=== PATIENT | male | born 1945 | race Caucasian/White ===

== ENCOUNTER 2018-06-27 05:53 | Inpatient (IN) ==
--- NOTE | 2018-06-27 06:08 | ED ---
HPI General Chief Complaint: Chest Pain Stated Complaint: Chest pain,lft arm pain x 40 mins Time Seen by Provider: 06/27/18 06:01 Source: patient Mode of arrival: ambulatory Limitations: no limitations History of Present Illness HPI narrative: 73-year-old male presents to the emergency department by private transportation for evaluation of retrosternal chest pain radiating to the left shoulder and right neck. Symptoms have been present since awakening at 4 AM. Patient is taken 325 of aspirin prior to arrival. Patient does not take nitroglycerin. Patient has had previous myocardial infarction in the 90s at which time he underwent cardiac catheterization and had stent placement. Patient reports discomfort is 1-1-1/2 over 10 in intensity at this time previously was 4-5/10 in intensity. No shortness of breath sweats nausea or vomiting. No abdominal pain. No history of gastritis peptic ulcer disease cholelithiasis biliary colic or pancreatitis. No recent long distance travel. No personal history or family history of clotting disorder PE or DVT. No pain or swelling of the legs. No orthopnea. No recent febrile illness. Patient takes no blood thinning agents and takes no erectile dysfunction medications. MD complaint: Reports chest pain Onset (ago): hour(s) (2) Time: 04:00 Duration: constant Onset: awoke with symptoms Pain location: Reports substernal Severity: mild Severity scale (1-10): 1 Quality: Reports tightness and aching Pain radiation: Reports LUE and neck (right) Relieving factors: nothing Exacerbating factors: nothing Context: Denies recent illness, recent surgery, recent immobilization, recent travel, trauma/injury, new medications and history of DVT/PE Associated symptoms: Denies nausea, vomiting, diaphoresis, dyspnea, sense of impending doom, syncope, palpitations, fever, cough and leg swelling Treatments prior to arrival chest pain: Reports aspirin (325 mg po) Related Data Home Medications Medication Instructions Recorded Confirmed allopurinol 300 mg PO DAILY 06/27/18 06/27/18 aspirin 325 mg PO DAILY 06/27/18 06/27/18 atorvastatin 10 mg PO DAILY 06/27/18 06/27/18 losartan 25 mg PO DAILY 06/27/18 06/27/18 Allergies Allergy/AdvReac Type Severity Reaction Status Date / Time Penicillins Allergy Hives Verified 06/27/18 06:00 Sulfa (Sulfonamide Allergy Hives Verified 06/27/18 06:00 Antibiotics) Review of Systems ROS: all other systems reviewed are negative PMFSH History History Provided By: Patient (cad, mi, cath w/ stent) Medical History Medical History History of hypertension (Acute) Hx of gout (Acute) Hx of myocardial infarction (Acute) Surgical History Surgical History Hx of coronary angioplasty (Acute) Family History Family History Other Osteoarthritis Social History Social History Substance History: No History of Abuse Second Hand Smoke Exposure: No Smoking Status: Former smoker Tobacco Type: Cigarettes How Often Do You Have a Drink Containing Alcohol: 4 or more times a week Recent Travel in [facility] within the Last 8 Weeks: No Recent Out of Country Travel within the Last 8 Weeks: No Exam Narrative Exam Narrative: GENERAL: Well-nourished, well-developed patient. SKIN: Focused skin assessment warm/dry. HEAD: Normocephalic. EYES: No scleral icterus. No injection or drainage. NECK: Supple, trachea midline. No JVD or lymphadenopathy. CARDIOVASCULAR: Regular rate and rhythm without murmurs, gallops, or rubs. RESPIRATORY: Breath sounds equal bilaterally. No accessory muscle use. GASTROINTESTINAL: Abdomen soft, non-tender, nondistended. MUSCULOSKELETAL: No cyanosis, or edema. BACK: Nontender without obvious deformity. No CVA tenderness. Course Initial Documented Vital Signs Pulse Rate 72 06/27/18 06:00 Pulse Oximetry 98 06/27/18 06:00 Last Documented Vital Signs Temperature 97.3 F L 06/28/18 12:00 Pulse Rate 64 06/28/18 12:00 Respiratory Rate 18 06/28/18 12:00 Blood Pressure 162/84 H 06/28/18 12:00 Pulse Oximetry 97 06/28/18 12:00 Critical Care Time Critical Care Time: Yes Total Critical Care Time: 30 Attestation: Aggregate critical care time was 30 minutes. Time to perform other separately billable procedures was not included in the critical care time. My time did not include minutes spent treating any other patients simultaneously or on activities that did not directly contribute to the patient's treatment. The services I provided to this patient were to treat and/or prevent clinically significant deterioration that could result in: Myocardial infarction cardiogenic shock I provided critical care services requiring my management, as noted below: Chart data review, documentation time, medication orders and management, vital sign assessments/reviewing monitor data, ordering and reviewing lab tests, ordering and interpreting/reviewing x-rays and diagnostic studies, care of the patient and discussion of the patient with the admitting physicians. Medical Decision Making MDM Narrative Medical decision making narrative: 33-year-old male with pain previous cardiac disease and PR; patient took aspirin prior to arrival to the emergency department. Patient placed on manager cardiac cath with continuous pulse oximetry IV access obtained specimens collected and sent for resulting patient administered sublingual nitroglycerin aspirin had already been received. EKG ordered. Patient pain-free after 1 sublingual nitroglycerin EKG sinus rhythm no acute ST elevation injury pattern old QS inferiorly V3 and aVF no ectopy rate 69 SD interval 182 ms QRS duration 122 ms QT 416/QTc 435 ms Chest x-ray no acute abnormality Lab values within normal range except for troponin I elevation 0.19 At 7:06 AM patient remains asymptomatic is informed of lab results and plan for admission and is agreeable Nitropaste 1 inch applied to the chest wall and heparin bolus with infusion ordered call placed to medicine service for admission. It's 7:20 care signed over to Dr Nguyen to admit to [facility] service for ACS r/o nstemi call placed to [facility] service call back pending Medical Screen Exam Complete: Yes Emergency Medical Condition: Yes Differential Diagnosis Differential Diagnosis: Chest pain, atypical chest pain, ACS, PR, aortic dissection, aortic aneurysm, PE, biliary colic, gastritis, peptic ulcer disease Medical Records Medical records reviewed: Yes I reviewed the patient's medical records. no prior Lab Data Result diagrams: 06/28/18 05:20 06/28/18 05:20 Lab Results 06/27/18 06/27/18 06/27/18 Range/Units 06:00 06:00 06:00 CBC w Diff Auto diff final WBC 6.8 (4.0-11.0) th/mm3 RBC 5.24 (4.50-5.90) mil/mm3 Hgb 16.3 (13.0-17.0) gm/dL Hct 49.6 (39.0-51.0) % MCV 94.5 (80.0-100.0) fL MCH 31.1 (27.0-34.0) pg MCHC 32.9 (32.0-36.0) % RDW 12.7 (11.6-17.2) % Plt Count 185 (150-450) th/mm3 MPV 8.4 (7.0-11.0) fL Neut % (Auto) 50.8 (16.0-70.0) % Lymph % (Auto) 33.0 (9.0-44.0) % Bradley % (Auto) 11.5 H (0.0-8.0) % Eos % (Auto) 4.0 (0.0-4.0) % Baso % (Auto) 0.7 (0.0-2.0) % Neut # (Auto) 3.5 (1.8-7.7) th/mm3 Lymph # (Auto) 2.2 (1.0-4.8) th/mm3 Bradley # (Auto) 0.8 (0.0-0.9) th/mm3 Eos # (Auto) 0.3 (0.0-0.4) th/mm3 Baso # (Auto) 0.0 (0.0-0.2) th/mm3 WBC Differential . Differential Comment . PT 10.3 (9.8-11.6) sec INR 1.0 Ratio APTT 27.6 (23.4-31.7) sec Sodium 133 L (136-145) meq/L Potassium 3.6 (3.5-5.1) meq/L Chloride 101 (98-107) meq/L Carbon Dioxide 25.2 (21.0-32.0) meq/L Anion Gap 7 (5-15) meq/L BUN 27 H (7-18) mg/dL Creatinine 1.30 (0.60-1.30) mg/dL Estimated GFR 54 L (>89) mL/min Random Glucose 117 H (74-106) mg/dL Calcium 9.2 (8.5-10.1) mg/dL Magnesium 1.7 (1.5-2.5) mg/dL Total Bilirubin 0.9 (0.2-1.0) mg/dL AST 26 (15-37) U/L ALT 26 (12-78) U/L Alkaline Phosphatase 75 (45-117) U/L Total Creatine Kinase (39-308) U/L Troponin I 0.19 H (0.02-0.05) ng/mL Total Protein 7.0 (6.4-8.2) g/dL Albumin 3.8 (3.4-5.0) g/dL Triglycerides (42-150) mg/dL Cholesterol (120-200) mg/dL LDL Cholesterol, Calc (0-99) mg/dL HDL Cholesterol (40.0-60.0) mg/dL Cholesterol/HDL Ratio Ratio 06/27/18 06/27/18 06/27/18 Range/Units 09:30 12:15 12:15 CBC w Diff WBC (4.0-11.0) th/mm3 RBC (4.50-5.90) mil/mm3 Hgb (13.0-17.0) gm/dL Hct (39.0-51.0) % MCV (80.0-100.0) fL MCH (27.0-34.0) pg MCHC (32.0-36.0) % RDW (11.6-17.2) % Plt Count (150-450) th/mm3 MPV (7.0-11.0) fL Neut % (Auto) (16.0-70.0) % Lymph % (Auto) (9.0-44.0) % Bradley % (Auto) (0.0-8.0) % Eos % (Auto) (0.0-4.0) % Baso % (Auto) (0.0-2.0) % Neut # (Auto) (1.8-7.7) th/mm3 Lymph # (Auto) (1.0-4.8) th/mm3 Bradley # (Auto) (0.0-0.9) th/mm3 Eos # (Auto) (0.0-0.4) th/mm3 Baso # (Auto) (0.0-0.2) th/mm3 WBC Differential Differential Comment PT (9.8-11.6) sec INR Ratio APTT 72.7 H D (23.4-31.7) sec Sodium (136-145) meq/L Potassium (3.5-5.1) meq/L Chloride (98-107) meq/L Carbon Dioxide (21.0-32.0) meq/L Anion Gap (5-15) meq/L BUN (7-18) mg/dL Creatinine (0.60-1.30) mg/dL Estimated GFR (>89) mL/min Random Glucose (74-106) mg/dL Calcium (8.5-10.1) mg/dL Magnesium (1.5-2.5) mg/dL Total Bilirubin (0.2-1.0) mg/dL AST (15-37) U/L ALT (12-78) U/L Alkaline Phosphatase (45-117) U/L Total Creatine Kinase 125 (39-308) U/L Troponin I 0.75 H* 1.67 H* (0.02-0.05) ng/mL Total Protein (6.4-8.2) g/dL Albumin (3.4-5.0) g/dL Triglycerides (42-150) mg/dL Cholesterol (120-200) mg/dL LDL Cholesterol, Calc (0-99) mg/dL HDL Cholesterol (40.0-60.0) mg/dL Cholesterol/HDL Ratio Ratio 06/27/18 06/27/18 06/28/18 Range/Units 22:40 22:40 05:20 CBC w Diff WBC 6.7 (4.0-11.0) th/mm3 RBC 4.36 L (4.50-5.90) mil/mm3 Hgb 14.4 (13.0-17.0) gm/dL Hct 41.0 (39.0-51.0) % MCV 94.0 (80.0-100.0) fL MCH 33.1 (27.0-34.0) pg MCHC 35.2 (32.0-36.0) % RDW 13.1 (11.6-17.2) % Plt Count 169 (150-450) th/mm3 MPV 7.8 (7.0-11.0) fL Neut % (Auto) 67.2 (16.0-70.0) % Lymph % (Auto) 18.8 (9.0-44.0) % Bradley % (Auto) 10.7 H (0.0-8.0) % Eos % (Auto) 2.4 (0.0-4.0) % Baso % (Auto) 0.9 (0.0-2.0) % Neut # (Auto) 4.5 (1.8-7.7) th/mm3 Lymph # (Auto) 1.3 (1.0-4.8) th/mm3 Bradley # (Auto) 0.7 (0.0-0.9) th/mm3 Eos # (Auto) 0.2 (0.0-0.4) th/mm3 Baso # (Auto) 0.1 (0.0-0.2) th/mm3 WBC Differential . Differential Comment Auto diff final PT (9.8-11.6) sec INR Ratio APTT 29.7 D (23.4-31.7) sec Sodium (136-145) meq/L Potassium (3.5-5.1) meq/L Chloride (98-107) meq/L Carbon Dioxide (21.0-32.0) meq/L Anion Gap (5-15) meq/L BUN (7-18) mg/dL Creatinine (0.60-1.30) mg/dL Estimated GFR (>89) mL/min Random Glucose (74-106) mg/dL Calcium (8.5-10.1) mg/dL Magnesium (1.5-2.5) mg/dL Total Bilirubin (0.2-1.0) mg/dL AST (15-37) U/L ALT (12-78) U/L Alkaline Phosphatase (45-117) U/L Total Creatine Kinase 176 (39-308) U/L Troponin I 6.68 H* (0.02-0.05) ng/mL Total Protein (6.4-8.2) g/dL Albumin (3.4-5.0) g/dL Triglycerides (42-150) mg/dL Cholesterol (120-200) mg/dL LDL Cholesterol, Calc (0-99) mg/dL HDL Cholesterol (40.0-60.0) mg/dL Cholesterol/HDL Ratio Ratio 06/28/18 Range/Units 05:20 CBC w Diff WBC (4.0-11.0) th/mm3 RBC (4.50-5.90) mil/mm3 Hgb (13.0-17.0) gm/dL Hct (39.0-51.0) % MCV (80.0-100.0) fL MCH (27.0-34.0) pg MCHC (32.0-36.0) % RDW (11.6-17.2) % Plt Count (150-450) th/mm3 MPV (7.0-11.0) fL Neut % (Auto) (16.0-70.0) % Lymph % (Auto) (9.0-44.0) % Bradley % (Auto) (0.0-8.0) % Eos % (Auto) (0.0-4.0) % Baso % (Auto) (0.0-2.0) % Neut # (Auto) (1.8-7.7) th/mm3 Lymph # (Auto) (1.0-4.8) th/mm3 Bradley # (Auto) (0.0-0.9) th/mm3 Eos # (Auto) (0.0-0.4) th/mm3 Baso # (Auto) (0.0-0.2) th/mm3 WBC Differential Differential Comment PT (9.8-11.6) sec INR Ratio APTT (23.4-31.7) sec Sodium 139 (136-145) meq/L Potassium 3.9 (3.5-5.1) meq/L Chloride 106 (98-107) meq/L Carbon Dioxide 27.5 (21.0-32.0) meq/L Anion Gap 6 (5-15) meq/L BUN 19 H (7-18) mg/dL Creatinine 1.23 (0.60-1.30) mg/dL Estimated GFR 58 L (>89) mL/min Random Glucose 112 H (74-106) mg/dL Calcium 8.0 L D (8.5-10.1) mg/dL Magnesium (1.5-2.5) mg/dL Total Bilirubin 0.9 (0.2-1.0) mg/dL AST 43 H (15-37) U/L ALT 22 (12-78) U/L Alkaline Phosphatase 67 (45-117) U/L Total Creatine Kinase 185 (39-308) U/L Troponin I 8.29 H* (0.02-0.05) ng/mL Total Protein 6.0 L D (6.4-8.2) g/dL Albumin 3.0 L D (3.4-5.0) g/dL Triglycerides 249 H (42-150) mg/dL Cholesterol 141 (120-200) mg/dL LDL Cholesterol, Calc 58 (0-99) mg/dL HDL Cholesterol 33.1 L (40.0-60.0) mg/dL Cholesterol/HDL Ratio 4.25 Ratio Imaging Data Radiologist's impression: Chest X-Ray 06/27/18 06:01 CONCLUSION: No acute disease ECG Data EKG Prior to Arrival: No Attestation: I personally reviewed and interpreted this ECG as follows: (EKG: Normal sinus rhythm rate [address] elevation injury pattern or ectopy noted prior QS pattern inferiorly consistent with history of previous PR; no comparison EKG available) Discharge Plan Discharge Disposition Patient Disposition: ED Admit(ED Internal Use Only) Discharge Condition Condition: Stable Discharge Order Discharge Orders: ED Use Only Admit Order (Routine); Ordered 06/27/18 Ordered By: Yaron Nguyen Discharge Details Diagnosis: ACS (acute coronary syndrome) Physicians Team ED Provider: Soo Valdovinos Primary Care Provider: NON STAFF,PROVIDER Attending Provider: Ashley Whyte Other Providers: Vikas Rodgers ED Status: Left Department Discharge Information Discharge Date/Time: 06/27/18 08:26
[2018-06-27] MEDS ORDERED: Sod Chloride 0.9% Inj 1,000 ML IV.CONT SCH (06:15)
[2018-06-27 06:23] LABS: Baso % (Auto) 0.7 % (0.0-2.0); Eos # (Auto) 0.3 th/mm3 (0.0-0.4); Hematocrit 49.6 % (39.0-51.0); Hemoglobin 16.3 gm/dL (13.0-17.0); Lymph # (Auto) 2.2 th/mm3 (1.0-4.8); Mean Corpuscular HGB Conc 32.9 % (32.0-36.0); Mean Corpuscular Hemoglobin 31.1 pg (27.0-34.0); Mean Corpuscular Volume 94.5 fL (80.0-100.0); Mean Platelet Volume 8.4 fL (7.0-11.0); Mono # (Auto) 0.8 th/mm3 (0.0-0.9); Mono % (Auto) 11.5 % (0.0-8.0); Neut # (Auto) 3.5 th/mm3 (1.8-7.7); Neut % (Auto) 50.8 % (16.0-70.0); Platelet Count 185 th/mm3 (150-450); Red Blood Count 5.24 mil/mm3 (4.50-5.90); Red Cell Distribution Width 12.7 % (11.6-17.2); White Blood Count 6.8 th/mm3 (4.0-11.0)
[2018-06-27 06:30] LABS: Chloride 101 meq/L (98-107); Potassium 3.6 meq/L (3.5-5.1); Sodium 133 meq/L (136-145)
--- NOTE | 2018-06-27 06:31 | XR ---
EXAM DATE: 06/27/2018 6:25 AM EST AGE/SEX: 73 years / Male INDICATIONS: Chest pain. CLINICAL DATA: This is the patient's initial encounter. Patient reports that signs and symptoms have been present for 1 day and indicates a pain score of 2/10. MEDICAL/SURGICAL HISTORY: Hypertension. Angioplasty. COMPARISON: No prior exams available for comparison. FINDINGS: A single AP view of the chest demonstrates the lungs to be symmetrically aerated without evidence of mass, infiltrate or effusion. The cardiomediastinal contours are unremarkable. Osseous structures a re intact. CONCLUSION: No acute disease Electronically signed by: Haim Johnson MD Board Certified Radiologist 06/27/2018 6:30 AM EST
[2018-06-27 06:33] LABS: Calcium 9.2 mg/dL (8.5-10.1)
[2018-06-27 06:34] LABS: Albumin 3.8 g/dL (3.4-5.0); Anion Gap 7 meq/L (5-15); Blood Urea Nitrogen 27 mg/dL (7-18); Carbon Dioxide 25.2 meq/L (21.0-32.0); Glucose,Random 117 mg/dL (74-106); Magnesium 1.7 mg/dL (1.5-2.5)
[2018-06-27 06:37] LABS: Alanine Aminotransferase 26 U/L (12-78); Aspartate Aminotransferase 26 U/L (15-37); Glomerular Filtration Rate 54 mL/min (>89)
[2018-06-27 06:40] LABS: Alkaline Phosphatase 75 U/L (45-117)
[2018-06-27 06:42] LABS: Troponin I 0.19 ng/mL (0.02-0.05)
[2018-06-27] MEDS ORDERED: Heparin Drip 25,000 UNIT/250 ML BAG IV.CONT PRN (07:03)
[2018-06-27] MEDS ORDERED: Heparin 10,000 UNITS/10 ML Vial (for IV use) IV.PUSH STA (07:03)
[2018-06-27 07:25] LABS: Activated Partial Thrombo Time 27.6 sec (23.4-31.7); Prothrombin Time 10.3 sec (9.8-11.6)
[2018-06-27] MEDS ORDERED: Morphine Inj 4 MG/ML Vial IV.PUSH PRN (07:27)
[2018-06-27] MEDS ORDERED: Acetaminophen 325 MG Tablet PO PRN (07:27)
[2018-06-27] MEDS ORDERED: Morphine Sulfate Inj 2 MG/ML Vial IV.PUSH PRN (07:45)
--- NOTE | 2018-06-27 08:41 | ECG ---
Date Performed: 06/27/2018 Time Performed: 06:05:38 PTAGE: 73 years EKG: Sinus rhythm INFERIOR MYOCARDIAL INFARCTION ABNORMAL ECG NO PREVIOUS TRACING DOCTOR: Edu Zuñiga Interpretating Date/Time 06/27/2018 08:39:31
[2018-06-27] MEDS ORDERED: Iohexol 350 MG/ML 100 ML Vial (for Cath Lab) IVCONTRAST ONE (09:54)
[2018-06-27] MEDS ORDERED: Iohexol 350 MG/ML 50 ML Vial (for Cath Lab) IVCONTRAST ONE (09:54)
[2018-06-27] MEDS: Allopurinol 300 MG Tablet PO SCH (10:27)
[2018-06-27] MEDS: Aspirin 325 MG Tablet PO SCH (10:28)
--- NOTE | 2018-06-27 11:30 | ECG ---
Date Performed: 06/27/2018 Time Performed: 09:42:02 PTAGE: 73 years EKG: Sinus rhythm INFERIOR MYOCARDIAL INFARCTION ABNORMAL ECG No significant change from prior electrocardiogram. PREVIOUS TRACING : 06/27/2018 07.27 DOCTOR: Edu Zuñiga Interpretating Date/Time 06/27/2018 11:29:22
--- NOTE | 2018-06-27 11:31 | ECG ---
Date Performed: 06/27/2018 Time Performed: 07:27:51 PTAGE: 73 years EKG: Sinus rhythm INFERIOR MYOCARDIAL INFARCTION ABNORMAL ECG No significant change from prior electrocardiogram. PREVIOUS TRACING : 06/27/2018 06.05 DOCTOR: Edu Zuñiga Interpretating Date/Time 06/27/2018 11:30:25
[2018-06-27 12:43] LABS: Troponin I 1.67 ng/mL (0.02-0.05)
[2018-06-27] MEDS ORDERED: Heparin/NS PF Inj 1,500 ML ONE (15:23)
[2018-06-27] MEDS ORDERED: fentaNYL Citrate Inj 100 MCG/2 ML Ampul ONE (15:24)
[2018-06-27] MEDS ORDERED: Heparin 10,000 UNITS/10 ML Vial (for IV use) ONE (16:16)
[2018-06-27] MEDS ORDERED: Tirofiban Inj 12,500 MCG/250 ML PLAST..BAG ONE (16:45)
[2018-06-27] MEDS ORDERED: Misc Info for Pharmacy OTHER STA (16:56)
[2018-06-27] MEDS ORDERED: TIROFIBAN BOLUS IV.SIG ONE (16:56)
[2018-06-27] MEDS ORDERED: Tirofiban Inj 12,500 MCG/250 ML PLAST..BAG IV.CONT SCH (17:00)
--- NOTE | 2018-06-27 17:13 | CATHPROC ---
[employer] HIS Report Study Information Study Number Admission Scheduled Start Study Start [id number] Jun 27 2018 7:27AM 06/27/2018 Jun 27 2018 3:15PM [place] [facility] Cardiac Catheterization Admit Source Facility Department Emergency department [facility] - Installer [employer] Physician and Clinical Staff Initial Vikas Griffin Commercial Field Inspector Kamila Arrington,RN Recorder Shelia Bradford,RT(R) (BS) Scrub Ronel Finnegan Procedures Performed Procedure Location (Site) Vessel Name Coronary Angiograms LCA Left Coronary Coronary Angiograms RCA Right Coronary L Heart Cath LV Gram-hand inj. LV LV Ventricle PTCA DIAG Prox Left Coronary Stent DIAG Prox Left Coronary Wire insertion Fem Art (right) Femoral Art Equipment Time Field Contact Person Description Size Mfg Part Number Used/Scraped [id number] 16:17 [employer] INTECC WIRE, ASAHI PROWATER 180CM 180CM Used *[id number] TRANSDUCER, TRUWAVE [id number] 15:17 NEGRETE ARIZA * Used W/STOCKCOCK *[id number] [id number] *[id number] [id number] *[id number] [id number] *[id number] [phone] *[id number] [phone] *[id number] 15:17 Pharm[employer] BLANKET,WARM AIR CCL * Used *[id number] 15:17 [employer] PACK, CCL CUSTOM * Used *[id number] 15:17 [employer] PACER PEN, SKIN DUAL W/ RULER * Used *[id number] 16:28 MEDTRONIC BALLOON, 2.5 X 10MM EUPHORA 10MM Used *[id number] 16:35 MEDTRONIC BALLOON, 2.5 X 15MM EUPHORA 15MM Used *[id number] 16:43 MEDTRONIC STENT, 2.5 12 INTEGRITY 2.5 12 Used *[id number] 16:31 MEDTRONIC STENT, 2.5 18 INTEGRITY 2.5 18 Used *[id number] 16:40 MEDTR[employer]IC STENT, 2.5 8 INTEGRITY 2.5 8 Used *[id number] 16:29 [employer] MEDICAL 30 ERIC INDEFLATOR Used *[id number] 16:20 [employer] MEDICAL SHEATH, FR6.5 PRELUDE 23CM FR 6.5 Used [id number] 15:17 [employer] MEDICAL WIRE, 3MMJ .035 180CM 180CM Used *[id number] 15:17 NAMIC MANIFOLD, 4 PORT * Used *[id number] 15:17 [employer]COMED OMNIPAQUE, 350 MG, 150ML 150ML [id number] Used 16:39 NYCOMED OMNIPAQUE, 350 MG, 150ML 150ML [id number] Used [id number] 15:17 TERUMO MEDICAL SHEATH, FR4 TERUMO (10CM) FR 4 Used *[id number] Equipment Model, Serial, Lot Number and Expiration Data Description Model Number Serial Number Lot Number Expiration Date STENT, 2.5 12 INTEGRITY [id number] 09-28-2019 STENT, 2.5 8 INTEGRITY [id number] 12-31-2019 WIRE, ASAHI PROWATER 180CM [id number] 10-08-2020 History: Current Medications Medication Dosage/Unit Route Frequency Last Date/Time Taken ASA HEPARIN History: Allergies Allergy Reaction Penicillins Hives Sulfa (Sulfonamide Antibiotics) Hives History: Risk Factors Family History of Hypertension Dyslipidemia Previous AK Previous Heart Failure Premature CAD Yes Yes No Yes No Prior Valve Prior PCI Prior CABG Surgery No Yes No Cerebrovascular Peripheral Artery Chronic Lung On Dialysis Diabetes Disease Disease Disease No No No No No History: CV Disease Selection Items AK History: Stress Tests Stress or Imaging Studies Performed No History: Other Current Smoker Method Quit Packs a Day Years Used Pack Years No Cigarettes 30 Years Ago 1 20 20 Labs Hgb (g/dl) Hct (%) WBC (l/cumm) Platelets (thousands) 11.60-17.00 35.00-51.00 4.00-11.00 150.00-450.00 16.3 49.6 6.8 185 Glucose (mg/dl) BUN (mg/dl) Creatinine (mg/dl) BUN:Creatinine (1:x) 74.00-106.00 7.00-18.00 0.50-1.30 10.00-20.00 117 27 1.3 20.8 Na (meq/l) K (meq/l) 136.00-145.00 3.50-5.10 133 3.6 INR (PTT:PT) 0.90-1.10 1 Troponin I (ng/ml) Troponin T (ng/ml) CPK-MB (ng/ML) 0.02-0.05 0.40-2.10 0.50-3.60 0.75 1.67 Not Drawn Medication Medication Total Dose (Bolus/Oral) Medication Total Dosage/Unit 1% XYLOCAINE 20 mL AGGRASTAT BOLUS 46.5 mL EFFIENT 60 mg FENTANYL 50 mcg HEPARIN 6500 units VERSED 1 mg Medications (Bolus/Oral) Medication Time Given Dosage/Unit Administered By Reason VERSED 06/27/2018 4:01:30 PM 1 mg Kamila Arrington 1 mg VERSED given in lab by Kamila Arrington RN in Left Antecubital via Peripheral IV. FENTANYL 06/27/2018 4:02:39 PM 25 mcg Kamila Arrington 25 mcg FENTANYL given in lab by Kamila Arrington RN in Left Antecubital via Peripheral IV. 1% XYLOCAINE 06/27/2018 4:03:54 PM 20 mL Kamila Arrington 20 mL 1% XYLOCAINE given in lab by Kamila Arrington RN in Right Groin via Subcutaneous. HEPARIN 06/27/2018 4:18:24 PM 6500 units Kamila Arrington 6500 units HEPARIN given in lab by Kamila Arrington RN via Peripheral IV. FENTANYL 06/27/2018 4:36:38 PM 25 mcg Kamila Arrington 25 mcg FENTANYL given in lab by Kamila Arrington RN in Left Antecubital via Peripheral IV. AGGRASTAT BOLUS 06/27/2018 4:48:25 PM 46.5 mL Kamila Arrington 46.5 mL AGGRASTAT BOLUS given in lab by Kamila Arrington RN via Peripheral IV. EFFIENT 06/27/2018 4:58:43 PM 60 mg Kamila Arrington 60 mg EFFIENT given in lab by Kamila Arrington RN via Oral. Medication (Drip) Medication Time Given Dosage/Unit Concentration/Unit Diluent (ml) Solution AGGRASTAT DRIP 06/27/2018 4:53:28 PM 0.15 mcg/kg/min 12.5 mg 250 NaCl .9 0.15 mcg/kg/min AGGRASTAT DRIP given in lab by Kamila Arrington RN via Peripheral IV. Pump/Drip Flow = 16.7 ml/hr using NaCl .9 with a concentration of 12.5 mg in 250 ml. HEPARIN DRIP STOPPED 06/27/2018 3:30:00 PM 0 units/hr 0 0 units/hr HEPARIN DRIP STOPPED given by Vikas Rodgers. Pump/Drip Flow = 8 ml/hr using [Solution N renee]. Initial Case Assessment Cardiovascular HR Rhythm NIBP Chest Pain 86 sr 144/85 1 Edema Present Skin color Skin None Normal Warm Dry Circulatory - Right Pulses Dorsalis Pedis Femoral 2 2 Scale (0,1,2,3,4,d) Circulatory - Left Pulses Dorsalis Pedis Femoral 2 2 Scale (0,1,2,3,4,d) Neurological State Oriented to time-place- Alert Moves all extremities person Respiration - General Respiration Rate SpO2 (%) (B/min) 18 96 Chronological Log Time Study Chronological Log 15:30:00 0 units/hr HEPARIN DRIP STOPPED given by Vikas Rodgers. Pump/Drip Flow = 8 ml/hr using [ Solution Name]. 15:38:29 Patient arrived via Bed. 15:38:30 Patient Name, D.O.B, / Armband Verified By R.N. 15:38:31 Consent signed by the physician and the patient and verified by the Installer [employer] staff. 15:38:31 Pre-op and post- op instructions given; patient acknowledges understanding of instructions. 15:38:32 Verbal Stimulation=2 Physical Stimulation=2 Airway=2 Respiration=2 TOTAL=8. (0=absent, 1=li mited, 2=present) 15:38:36 Immediate Presedation assesment performed by physician. 15:38:39 Patient has been NPO for More than 6Hrs. 15:38:40 Skin Breakdown- non per patient 15:38:41 Patient Warmer Placed on the Table. 15:38:41 Vee Prominences Protected 15:38:43 A # 20 IV was noted in the Antecubital (left). Grade = 0 15:38:46 History and physical on the chart or being dictated. Assessment: Initial Case, HR=86 BPM, Rhythm=sr, DINF=206/85 mmhg, Chest Pain=1, Edema=None, Col or=Normal, Skin = Warm, Dry Right Pulses: Ramesh Ped=2, Femoral=2 15:38:46 Left Pulses: Ramesh Ped=2, Femoral=2 Neurological: State=Alert, Ox3, GREENE Respiration: Resp=18 B/min, SpO2=96 % 15:39:13 MD arrived. Vitals capture started with the following parameters, Patient=Adult, Interval=5 min, Initial Pr gkoewf=042 mmHg, 15:42:28 Deflation Rate=5 mmHg, Cuff placed on Left Arm 15:43:11 SCLP=584/96 mmhg, SpO2=98.0 %, Pain=1, Molina=1 15:48:10 HR=74 bpm, BEOL=860/85 mmhg, SpO2=96.0 %, Resp=21 B/min, Pain=1 15:50:45 Reference ECG taken 15:53:09 HR=79 bpm, GBSZ=406/87 mmhg, SpO2=96.0 %, Resp=17 B/min, Pain=1 15:54:40 Bilateral groins prepped with 2% chlorhexidine, and draped after a 3 minute waiting time. 15:58:10 HR=74 bpm, KREO=692/81 mmhg, SpO2=97.0 %, Resp=14 B/min, Pain=1 15:58:47 MD paged 15:58:53 MD arrived. Time Out. Correct patient, correct procedure, correct physician, labs, allergies, and equipment verified with brush clearing laborer 16:01:00 team present. Fire risk assesment completed (see hard stop sheet for coding). Time Out Conc urred by MD and individual staff in procedure. 16:01:12 Pressure channel 1 zeroed. 16:01:27 Case Start 16:01:30 1 mg VERSED given in lab by Kamila Arrington RN in Left Antecubital via Peripheral IV. 16:02:39 25 mcg FENTANYL given in lab by Kamila Arrington, YOLANDA in Left Antecubital via Peripheral IV. 16:03:11 HR=79 bpm, GHKV=938/83 mmhg, SpO2=97.0 %, Resp=19 B/min, Pain=1 16:03:54 20 mL 1% XYLOCAINE given in lab by Kamila Arrington, YOLANDA in Right Groin via Subcutaneous. 16:05:27 Access site was Right Femoral Artery. 16:05:34 A WIRE, 3MMJ .035 180CM 180CM was inserted via Fem Art (right). 16:05:49 A SHEATH, FR4 TERUMO (10CM) FR 4 was advanced into the Fem Art (right) using the Percutaneo us technique. 16:06:10 Activated Clotting Time Drawn A JR 4.0 INFINITI CATHETER FR 4 was advanced over a wire. OMNIPAQUE, 350 MG, 150ML 150ML was us ed for 16:06:16 injections. Recorded Pressure: LV, HR=75, Condition=Condition 1 16:07:05 (Left Ventricle) LV 129/3/12 16:07:11 The LV was manually injected with 10 cc's and visualized. OMNIPAQUE, 350 MG, 150ML 150ML us ed. Recorded Pressure: LV, Ao, HR=75, Condition=Condition 1 16:07:26 (Left Ventricle) LV 128/4/8, (Aorta) Ao 133/72/97 Recorded Pressure: Ao, HR=76, Condition=Condition 1 16:07:52 (Aorta) Ao 130/72/96 16:08:08 HR=85 bpm, QMFY=932/83 mmhg, SpO2=92.0 %, Resp=19 B/min, Pain=1 16:08:35 The RCA was injected and visualized at various angles. OMNIPAQUE, 350 MG, 150ML 150ML used. 16:08:55 A JL 5.0 INFINITI CATHETER FR 4 was advanced over a wire. contrast was used for injections. 16:09:14 ACT (Normal Range 90-180) = 139 16:09:41 After removing the current catheter a catheter was advanced over a WIRE, 3MMJ .035 180CM 18 0CM. 16:11:33 The LCA was injected and visualized at various angles. OMNIPAQUE, 350 MG, 150ML 150ML used . 16:13:09 HR=76 bpm, DLIW=876/81 mmhg, SpO2=93.0 %, Resp=18 B/min, Pain=1 After removing the current catheter a JL 5.0 INFINITI CATHETER FR 4 was advanced over a WIRE, 3 MMJ .035 180CM 16:13:23 180CM. 16:18:24 6500 units HEPARIN given in lab by Kamila Arrington RN via Peripheral IV. A SHEATH, FR6.5 PRELUDE 23CM FR 6.5 was exchanged in the Fem Art (right). This was necessary in order to 16:18:38 accomodate a larger catheter. 16:18:45 HR=88 bpm, CWYK=609/86 mmhg, SpO2=98.0 %, Resp=10 B/min, Pain=1 A XB 4.5 GUIDE CATHETER FR 6 was advanced over a wire. OMNIPAQUE, 350 MG, 150ML 150ML was used for 16:20:04 injections. After removing the current catheter a XB 4.0 GUIDE CATHETER FR 6 was advanced over a WIRE, 3MMJ .035 180CM 16:22:19 180CM. 16:23:12 HR=81 bpm, BHBA=188/85 mmhg, SpO2=94.0 %, Resp=16 B/min, Pain=1 16:24:38 A WIRE, ASAHI PROWATER 180CM 180CM was inserted via Fem Art (right). 16:28:11 HR=83 bpm, VLJX=265/83 mmhg, SpO2=96.0 %, Resp=9 B/min, Pain=1 A BALLOON, 2.5 X 10MM EUPHORA 10MM was inserted over WIRE, ASAHI PROWATER 180CM 180CM via the F em Art 16:28:17 (right). A BALLOON, 2.5 X 10MM EUPHORA 10MM over a WIRE, ASAHI PROWATER 180CM 180CM in the DIAG Prox was 16:29:08 inflated using a 30 ERIC INDEFLATOR at 4 eric for 13 sec. A BALLOON, 2.5 X 10MM EUPHORA 10MM over a WIRE, ASAHI PROWATER 180CM 180CM in the DIAG Prox was 16:29:52 inflated using a 30 ERIC INDEFLATOR at 7 eric for 11 sec. 16:30:23 Balloon Removed A STENT, 2.5 18 INTEGRITY 2.5 18 was advanced through a XB 4.0 GUIDE CATHETER FR 6 over a WIRE, ASAHI 16:31:45 PROWATER 180CM 180CM. 16:33:14 HR=80 bpm, LFKP=002/93 mmhg, SpO2=97.0 %, Resp=8 B/min, Pain=1 16:33:19 Stent not deployed. Stent removed and intact. A BALLOON, 2.5 X 10MM EUPHORA 10MM was inserted over WIRE, ASAHI PROWATER 180CM 180CM via the F em Art 16:33:36 (right). 16:34:49 Balloon Removed A BALLOON, 2.5 X 15MM EUPHORA 15MM was inserted over WIRE, ASAHI PROWATER 180CM 180CM via the F em Art 16:35:51 (right). 16:36:38 25 mcg FENTANYL given in lab by Kamila Arrington RN in Left Antecubital via Peripheral IV. A BALLOON, 2.5 X 15MM EUPHORA 15MM over a WIRE, ASAHI PROWATER 180CM 180CM in the DIAG Prox was 16:36:57 inflated using a 30 ERIC INDEFLATOR at 9 eric for 7 sec. A BALLOON, 2.5 X 15MM EUPHORA 15MM over a WIRE, ASAHI PROWATER 180CM 180CM in the DIAG Prox was 16:37:36 inflated using a 30 ERIC INDEFLATOR at 8 eric for 8 sec. 16:37:47 Balloon Removed 16:38:19 HR=73 bpm, UNMF=104/91 mmhg, XlA8=259.0 %, Resp=7 B/min, Pain=1 An STENT, 2.5 18 INTEGRITY 2.5 18 Bare Metal Stent was inserted through a XB 4.0 GUIDE CATHETER FR 6 over a 16:39:19 WIRE, ASAHI PROWATER 180CM 180CM. 16:40:37 Stent not deployed. Stent removed and intact. An STENT, 2.5 8 INTEGRITY 2.5 8 Bare Metal Stent was inserted through a XB 4.0 GUIDE CATHETER F R 6 over a 16:41:50 WIRE, ASAHI PROWATER 180CM 180CM. A STENT, 2.5 8 INTEGRITY 2.5 8 was deployed using a 30 ERIC INDEFLATOR at 10 atmospheres for 10 seconds in the 16:42:15 DIAG Prox. 16:43:16 HR=79 bpm, YXFK=400/91 mmhg, SpO2=98.0 %, Resp=5 B/min, Pain=1 An STENT, 2.5 12 INTEGRITY 2.5 12 Bare Metal Stent was inserted through a XB 4.0 GUIDE CATHETER FR 6 over a 16:43:50 WIRE, ASAHI PROWATER 180CM 180CM. A STENT, 2.5 12 INTEGRITY 2.5 12 was deployed using a 30 ERIC INDEFLATOR at 10 atmospheres for 1 0 seconds in 16:44:12 the DIAG Prox. 16:45:28 Delivery device removed 16:45:34 Catheter was removed 16:45:37 Wire removed 16:46:21 Case End (Physician broke scrub) 16:47:47 No case complications noted. 16:47:51 Bedside Report will be given. 16:47:52 Implantable Device card placed in patient's chart. 16:47:53 A Left Heart Cath was performed. 16:48:17 HR=79 bpm, YWVL=645/90 mmhg, SpO2=98.0 %, Resp=9 B/min, Pain=1 16:48:25 46.5 mL AGGRASTAT BOLUS given in lab by Kamila Arrington RN via Peripheral IV. 16:51:05 In the Fem Art (right) the SHEATH, FR6.5 PRELUDE 23CM FR 6.[address] by Ronel Shankar. 16:53:16 HR=79 bpm, RCCV=495/80 mmhg, SpO2=96.0 %, Resp=11 B/min, Pain=1 0.15 mcg/kg/min AGGRASTAT DRIP given in lab by Kamila Arrington RN via Peripheral IV. Pump/Drip Flow = 16.7 ml/hr 16:53:28 using NaCl .9 with a concentration of 12.5 mg in 250 ml. 16:56:15 Sterile dressing applied to site 16:58:11 HR=91 bpm, OORV=614/83 mmhg, SpO2=99.0 %, Resp=8 B/min, Pain=1 16:58:43 60 mg EFFIENT given in lab by Kamila Arrington, YOLANDA via Oral. 17:02:50 Vitals capture stopped. End Study - Contrast Media Used In Study Contrast Total Opened (mL) Total Used (mL) Total Wasted (mL) Omnipaque 350 150 150 0 End Study - Maximum Contrast Load Max Contrast Load (mL) 357.7 End Study - Radiation Exposure Fluoro Time Fluoro Dose (mGy) Cine Dose (uGym2) (minutes) 11.0 1642 [id number] End Study - Patient Disposition Complications Transferred To Interventional Outcome No Telemetry Bed successful
--- NOTE | 2018-06-27 17:33 | MB ---
cc: Vikas Rodgers MD DATE: 06/27/2018 HISTORY OF PRESENT ILLNESS: Hugh is a very pleasant 73-year-old gentleman with a history of hypertension, gout, history of myocardial infarction and history of PCI, who developed chest pain, presented to the [facility] and was admitted. Initial troponin was elevated. Second troponin was increasing. The patient is still having residual chest pressure, appears to be in no acute distress, however. Otherwise, he denies any fevers, chills, cough, GI or bleeding. PAST MEDICAL HISTORY: Per history of present illness. ALLERGIES: PENICILLIN AND SULFA. SOCIAL HISTORY: He is a former smoker. He drinks 4 or more times a week. MEDICATIONS IN THE HOSPITAL: 1. Aspirin 325 mg daily. 2. Lipitor 10 mg daily. 3. Heparin bolus and drip. 4. Cozaar 25 mg daily. PHYSICAL EXAMINATION: VITAL SIGNS: Blood pressure 142/94, pulse 75, respiratory rate 18, temperature 96, sat is 95% on room air. GENERAL: He is alert and oriented x 3, in no acute distress. NECK: Supple. No JVD. No bruit. CARDIOVASCULAR: S1, S2. No murmurs, rubs or gallops. LUNGS: Clear to auscultation bilaterally. ABDOMEN: Soft, nontender, nondistended with positive bowel sounds. EXTREMITIES: No lower extremity edema. DIAGNOSTIC DATA: EKG: Normal sinus rhythm at 69 beats per minute, inferior Q-waves suggestive of prior inferior myocardial infarction. Chest x-ray: No acute disease. LABORATORY DATA: White count 6.8, hemoglobin 15.3, hematocrit 49.6, platelet count 185. INR is 1.0, PTT 72.7. Sodium 133, potassium 3.6, chloride 111, bicarbonate 25.2, BUN 27, creatinine 1.30. Troponin is 0.19, followed by 0.75 and 1.67. CK is 125. DIAGNOSES: 1. Non-ST elevation myocardial infarction. 2. Hyponatremia. 3. Coronary artery disease. 4. Previous myocardial infarction. DISCUSSION: At this point in time, the patient is having ongoing chest pressure with increasing troponin; therefore, I have recommended an urgent left heart catheterization. Further recommendations based on the results of the left heart catheterization. The patient is being appropriately treated with aspirin, heparin bolus and drip and Lipitor as well as an ARB. We will add beta blockers as hemodynamically and clinically tolerated. MD LASHONDA Lind/mahesh , 03:52 PM , 03:59 PM
--- NOTE | 2018-06-27 20:01 | P.HPIM ---
History of Present Illness Primary Care Physician: PROVIDER NON STAFF Chief Complaint: Chest Pain History of Present Illness: Mr. Villatoro is a 73-year-old male. He came into the emergency department overnight complaining that he was awoken in the middle the night at approximately 4 AM secondary to severe tightness and sharp pain in his chest. He has a past history of coronary artery disease and had an OK with angioplasty per 1994. He cannot recall any specific chest symptoms until last night. When seen his troponin is 0.19. He is having some mild chest pressure but says this is nothing like what was happening last night. His second troponin at 3 hours after the first had trended up to 0.75. Due to this finding he was transitioned to [facility] main and heart catheterization would be a likely next step. No other complaints today. No shortness of breath. No diaphoresis. No nausea. No vomiting. He does have a past history of smoking but has not been smoking recently. Inpatient Certification Inpatient Certification: I certify that the inpatient services were ordered in accordance with Medicare regulations governing the order. This includes certification that hospital inpatient services are reasonable and necessary and in the case of services not specified as inpatient-only under 42 CFR 419.22(n), that they are appropriately provided as inpatient services in accordance to with the 2-midnight benchmark under 43 CFR 412.3(e) Estimated Total Length of Stay (Days): 2 Plans for Post Hospital Care: Home Review of Systems Constitutional: No fevers, no chills no night sweats, no fatigue, no weakness Eyes: No eye pain, no blurry vision, no loss of vision ENT: No sore throat, no ear pain, no rhinorrhea Cardiovascular: chest pain, no tachycardia, no palpitations, no syncope Respiratory: No wheezing, no cough, no shortness of breath Gastrointestinal: No abdominal pain, no black tarry stools, no bright red blood per rectum, no vomiting, no diarrhea Musculoskeletal: No joint pain, no muscle cramps, no stiffness Integumentary: No rash, no ulcers, no drainage Neurologic: No sensory loss, no loss of motor function, no dizziness Psychiatric: No behavioral changes, no hallucinations, no suicidal ideations PMFSH Medical History Medical History History of hypertension (Acute) Hx of gout (Acute) Hx of myocardial infarction (Acute) Surgical History Surgical History Hx of coronary angioplasty (Acute) Family History Family History Other Osteoarthritis Social History Social History Substance History: No History of Abuse Second Hand Smoke Exposure: No Smoking Status: Former smoker Tobacco Type: Cigarettes How Often Do You Have a Drink Containing Alcohol: 4 or more times a week Recent Travel in [facility] within the Last 8 Weeks: No Recent Out of Country Travel within the Last 8 Weeks: No Immunization History Tetanus Immunization: Unsure Medications and Allergies Allergies Allergy/AdvReac Type Severity Reaction Status Date / Time Penicillins Allergy Hives Verified 06/27/18 06:00 Sulfa (Sulfonamide Allergy Hives Verified 06/27/18 06:00 Antibiotics) Home Medications Medication Instructions Recorded Confirmed Type allopurinol 300 mg PO DAILY 06/27/18 06/27/18 History aspirin 325 mg PO DAILY 06/27/18 06/27/18 History atorvastatin 10 mg PO DAILY 06/27/18 06/27/18 History losartan 25 mg PO DAILY 06/27/18 06/27/18 History Active Medications: Active Medications Acetaminophen (Tylenol) 650 mg PO Q4H PRN PRN Reason: Temp > 100.4 Al Hydroxide/Mg Hydroxide (Milk Of Olamide Molina) 30 ml PO Q12H PRN PRN Reason: Mild Constipation Allopurinol (Zyloprim) 300 mg PO DAILY [facility] Last Admin: 06/27/18 10:27 Dose: 300 mg Aspirin (Aspirin) 325 mg PO DAILY [facility] Last Admin: 06/27/18 10:28 Dose: Not Given Aspirin (Aspirin Chew) 162 mg PO DAILY [facility] Atorvastatin Calcium (Lipitor) 10 mg PO DAILY [facility] Last Admin: 06/27/18 10:27 Dose: 10 mg Carvedilol (Coreg) 3.125 mg PO BID [facility] Sodium Chloride (Ns Inj) 1,000 mls @ 80 mls/hr IV.CONT .[id number] [facility] Tirofiban/Sodium Chloride (Aggrastat Inj) 12,500 mcg in 250 mls @ 0 mls/hr IV.CONT .Q0M [facility]; Protocol Losartan Potassium (Cozaar) 25 mg PO DAILY [facility] Last Admin: 06/27/18 10:26 Dose: 25 mg Morphine Sulfate (Morphine Inj) 2 mg IV.PUSH Q4H PRN PRN Reason: PAIN 3-6 Morphine Sulfate (Morphine Inj) 4 mg IV.PUSH Q4H PRN PRN Reason: Pain 7 to 10 Nitroglycerin (Nitrostat Sl) 0.4 mg SL Q5M PRN PRN Reason: CHEST PAIN Ondansetron HCl (Zofran Inj) 4 mg IV.PUSH Q6H PRN PRN Reason: NAUSEA OR VOMITING Prasugrel (Effient) 10 mg PO DAILY [facility] Sodium Chloride (Ns Flush) 2 ml IV.FLUSH PRN PRN PRN Reason: FLUSH AFTER USING IV ACCESS Sodium Chloride (Ns Flush) 2 ml IV.FLUSH BID [facility] Sodium Chloride (Ns Flush) 2 ml IV.FLUSH PRN PRN PRN Reason: FLUSH AFTER USING IV ACCESS Physical Exam Vital signs: Vital Signs 06/27/18 06:00 06/27/18 06:05 06/27/18 06:10 Temperature 98.5 F Pulse Rate 72 75 78 Respiratory Rate 16 16 Blood Pressure 169/102 H 172/108 H Pulse Oximetry 98 98 98 06/27/18 06:20 06/27/18 06:25 06/27/18 06:31 Temperature Pulse Rate 67 78 Respiratory Rate 16 16 16 Blood Pressure 165/91 H 122/70 Pulse Oximetry 97 98 06/27/18 06:45 06/27/18 06:58 06/27/18 07:54 Temperature 97.7 F Pulse Rate 72 71 65 Respiratory Rate 16 16 16 Blood Pressure 152/83 H 150/83 H 138/74 Pulse Oximetry 98 95 94 L 06/27/18 08:00 06/27/18 08:45 06/27/18 14:43 Temperature 96 F L Pulse Rate 68 67 75 Respiratory Rate 20 18 Blood Pressure 158/76 H 142/94 H Pulse Oximetry 95 95 06/27/18 19:00 Temperature Pulse Rate 78 Respiratory Rate Blood Pressure Pulse Oximetry Intake & Output 06/27/18 06/27/18 06/28/18 06:59 18:59 06:59 Intake Total 830 / 830 Balance 830 / 830 Weight 95 kg 93 kg Intake: IV 510 / 510 Heparin/D5W 25,000 U/250 mL 25, 10 / 10 000 unit In 250 ml @ Per Protocol IV.CONT TITRATE PRN Rx #:[id number] NS Inj 1,000 ML @ 100 mls/hr IV 500 / 500 .CONT .Q10H [facility] Rx#:[id number] Oral 320 / 320 Other: # Voids 1 Date of Last Bowel Movement 06/27/18 Weight On Admission 93 kg Narrative: GENERAL: NAD, A&Ox3 HEAD: Normocephalic. NECK: Supple, trachea midline. No lymphadenopathy. EYES: No scleral icterus. No injection or drainage. CARDIOVASCULAR: Regular rate and rhythm without murmurs, gallops, or rubs. RESPIRATORY: Breath sounds equal bilaterally. No accessory muscle use. GASTROINTESTINAL: Abdomen soft, non-tender, nondistended. MUSCULOSKELETAL: No cyanosis, or edema. SKIN: Warm and dry. NEURO: No focal neurological deficits. Results Labs CBC & Chem 7: 06/27/18 06:00 06/27/18 06:00 Imaging Impressions Chest X-Ray 06/27/18 06:01 CONCLUSION: No acute disease Caprini VTE Risk Assessment Caprini VTE Risk Assessment: Moderate/High Risk (score >= 2) Caprini Risk Assessment Model: Point Value = 1 Point Value = 2 Point Value = 3 Point Value = 5 Age 41-60 Minor surgery BMI > 25 kg/m2 Swollen legs Varicose veins or History of unexplained or recurrent spontaneous Oral contraceptives or hormone replacement Sepsis (< 1 month) Serious lung disease, including pneumonia (< 1 month) Abnormal pulmonary function Acute myocardial infarction Congestive heart failure (< 1 month) History of inflammatory bowel disease Medical patient at bed rest Age 61-74 Arthroscopic surgery Major open surgery (> 45 min) Laparoscopic surgery (> 45 min) Malignancy Confined to bed (> 72 hours) Immobilizing plaster cast Central venous access Age >= 75 History of VTE Family history of VTE Factor V Leiden Prothrombin [id number] Lupus anticoagulant Anticardiolipin antibodies Elevated serum homocysteine Heparin-induced thrombocytopenia Other congenital or acquired thrombophilia Stroke (< 1 month) Elective arthroplasty Hip, pelvis, or leg fracture Acute spinal cord injury (< 1 month) Prophylaxis Regimen: Total Risk Factor Score Risk Level Prophylaxis Regimen 0-1 Low Early ambulation 2 Moderate Order ONE of the following: *Sequential Compression Device (SCD) *Heparin 5000 units SQ BID 3-4 Higher Order ONE of the following medications: *Heparin 5000 units SQ TID *Enoxaparin/Lovenox 40 mg SQ daily (WT < 150 kg, CrCl > 30 mL/min) *Enoxaparin/Lovenox 30 mg SQ daily (WT < 150 kg, CrCl > 10-29 mL/min) *Enoxaparin/Lovenox 30 mg SQ BID (WT < 150 kg, CrCl > 30 mL/min) AND/OR *Sequential Compression Device (SCD) 5 or more Highest Order ONE of the following medications: *Heparin 5000 units SQ TID (Preferred with Epidurals) *Enoxaparin/Lovenox 40 mg SQ daily (WT < 150 kg, CrCl > 30 mL/min) *Enoxaparin/Lovenox 30 mg SQ daily (WT < 150 kg, CrCl > 10-29 mL/min) *Enoxaparin/Lovenox 30 mg SQ BID (WT < 150 kg, CrCl > 30 mL/min) AND *Sequential Compression Device (SCD) Assessment and Plan Plan 73-year-old male admitted secondary to chest pain and then subsequently upgraded to admit for NSTEMI Chest pain NSTEMI Continue to evaluate for ACS Follow cardiac enzymes Aspirin daily When necessary oxygen When necessary morphine for pain. When necessary nitroglycerin Follow on telemetry Cardiology consult Transferred to [facility] main Anticipate heart catheterization Continue aspirin Continue statin Fasting lipid profile in a.m. Gout Continue allopurinol Hypertension Continue losartan Continue baseline treatment Follow blood pressures Adjust treatments as needed DVT prophylaxis Heparin H&P: Quality VTE Deep Vein Thrombosis/Pulmonary Embolism Present on Admission: No
[2018-06-27] MEDS: Sod Chloride 0.9% Inj 1,000 ML IV.CONT SCH ×2 (20:20→20:41)
--- NOTE | 2018-06-27 20:36 | MR ---
cc: Vikas Rodgers MD DATE: 06/27/2018 PROCEDURE: 1. Left heart catheterization. 2. Left ventriculography. 3. Coronary angiography. 4. PCI with bare-metal stent x2 of the proximal, mid, second diagonal artery. INDICATIONS FOR PROCEDURE: Non-STEMI, coronary artery disease. PROCEDURE: The patient was brought to the cardiac catheterization laboratory, prepped and draped in the usual sterile fashion. Lidocaine 1%, 10 mL, was used to locally anesthetize the right common femoral artery. A 4-Belarusian sheath was placed in right common femoral artery, 4-Belarusian JL5 catheters were used to perform left ventricular coronary angiography. FINDINGS: LV pressure is 130/2-8, ejection fraction is 60%. Right coronary artery is dominant. It is occluded proximally. Left main coronary artery has no significant disease angiographically. Left circumflex vessel has no significant disease angiographically. First obtuse marginal vessel is a medium-sized vessel, probably reference vessel diameter of 3.0 mm proximally. There is a long 70%-75% stenosis in the mid segment. The mid to distal AV groove left circumflex appears to be occluded and there are left to right collaterals to the right PDA right MAXIMILIAN. The LAD has a long 60% mid stenosis sequentially with another 60% mid stenosis and then in the distal segment, there is a 60% stenosis. The LAD is transapical. First diagonal artery is a small vessel, probably 1.5 mm proximally and has a 90% blockage proximal to the bifurcation supplying two 1-mm branches. Second diagonal artery is subtotally occluded in the proximal segment with sequential lesions of 95% with AMAIRANI 2-3 flow into the distal vessel, reference vessel diameter 2.5 mm. There are extensive left to right collaterals from septal change management specialist branch to the right PDA filling the right MAXIMILIAN to a high-grade lesion of 95%, which then fills a distal segment of the right coronary artery. Also note the LAD is heavily calcified fluoroscopically in the proximal segment. DISCUSSION: The culprit lesion appears to be the second diagonal artery. The patient does have moderate to severe 3-vessel coronary artery disease. He is not diabetic. He has preserved left ventricular function. At this point in time, I will fix his culprit lesion. Obviously, the patient may need to be considered for bypass depending on his trend and symptoms, and hemodynamics after the intervention. Therefore, 6-Belarusian sheath was exchanged for a 4-Belarusian sheath, 70 units per kg of heparin was given. ACT 248. A 6-Belarusian XB 4.0 guide and a 0.014 [place] guidewire, were placed into the distal second diagonal artery. I predilated the lesion with a 2510 Euphora balloon, 3 inflations of up to 8 atmospheres for up to 20 seconds. I then attempted to deliver a 2518 Integrity stent. This would not deliver at an approximately 80 degree bend of the proximal diagonal vessel. Therefore, I predilated the lesion again with a 2510 Euphora balloon up to 10 atmospheres. Again, I was not able to deliver the 2518 Integrity stent. Therefore, I placed a 258 Integrity stent in the distal segment of the lesion and deployed 1 inflation, 10 atmospheres for 20 seconds. I then deployed a 2512 Integrity stent with approximately 1-2 mm of overlap of the previously placed stent with 1 inflation at 10 atmospheres for 20 seconds. The stenoses went from 95% to 0% with AMAIRANI 3 flow. The patient was chest pain free at the end of the procedure. CONCLUSION: 1. 1. [id number] myocardial infarction, culprit 95% sequential stenoses in the proximal mid second diagonal artery as detailed above. 2. Otherwise, moderate to severe 3-vessel coronary artery disease in a right dominant system as detailed above. 3. Preserved left ventricular systolic function with ejection fraction 60%. 4. Successful percutaneous coronary intervention bare-metal stent x2 of approximately mid second diagonal artery for 95% with AMAIRANI 2-3 flow to 0% with AMAIRANI 3 flow. 5. The patient is asymptomatic at the end of the procedure. 6. Recommend Effient 60 mg p.o. load, then 10 mg daily for 12 to 15 months, aspirin 162 mg daily. The patient will continue Lipitor 80 mg at bedtime. We will treat with beta fela and LARISA inhibitor as clinically tolerated. Note that the patient's creatinine was in the upper limit of normal; therefore, we will hold the LARISA inhibitor until trend in the hemodynamics are determined. The patient was treated precatheterization with a liter of normal saline. His LVEDP was 10 at the time of the initiation of the infusion. MD LASHONDA Lind/tyree/andrés , 04:56 PM , 05:07 PM
[2018-06-27 23:12] LABS: Troponin I 6.68 ng/mL (0.02-0.05)
[2018-06-28 05:41] LABS: Baso # (Auto) 0.1 th/mm3 (0.0-0.2); Baso % (Auto) 0.9 % (0.0-2.0); Eos # (Auto) 0.2 th/mm3 (0.0-0.4); Eos % (Auto) 2.4 % (0.0-4.0); Hemoglobin 14.4 gm/dL (13.0-17.0); Lymph # (Auto) 1.3 th/mm3 (1.0-4.8); Lymph % (Auto) 18.8 % (9.0-44.0); Mean Corpuscular HGB Conc 35.2 % (32.0-36.0); Mean Corpuscular Hemoglobin 33.1 pg (27.0-34.0); Mean Platelet Volume 7.8 fL (7.0-11.0); Mono # (Auto) 0.7 th/mm3 (0.0-0.9); Mono % (Auto) 10.7 % (0.0-8.0); Neut # (Auto) 4.5 th/mm3 (1.8-7.7); Neut % (Auto) 67.2 % (16.0-70.0); Platelet Count 169 th/mm3 (150-450); Red Blood Count 4.36 mil/mm3 (4.50-5.90); Red Cell Distribution Width 13.1 % (11.6-17.2); White Blood Count 6.7 th/mm3 (4.0-11.0)
[2018-06-28 06:06] LABS: Anion Gap 6 meq/L (5-15); Aspartate Aminotransferase 43 U/L (15-37); Blood Urea Nitrogen 19 mg/dL (7-18); Carbon Dioxide 27.5 meq/L (21.0-32.0); Chloride 106 meq/L (98-107); Glomerular Filtration Rate 58 mL/min (>89); Glucose,Random 112 mg/dL (74-106); Potassium 3.9 meq/L (3.5-5.1); Sodium 139 meq/L (136-145)
[2018-06-28 06:07] LABS: Alanine Aminotransferase 22 U/L (12-78); Cholesterol 141 mg/dL (120-200); Triglycerides 249 mg/dL (42-150)
[2018-06-28 06:11] LABS: Alkaline Phosphatase 67 U/L (45-117); Chol/HDL Ratio 4.25 Ratio; Creatine Kinase 185 U/L (39-308); HDL Cholesterol 33.1 mg/dL (40.0-60.0); LDL Cholesterol,Calculated 58 mg/dL (0-99)
[2018-06-28 06:18] LABS: Troponin I 8.29 ng/mL (0.02-0.05)
[2018-06-28] MEDS: Aspirin 325 MG Tablet PO SCH (08:49)
[2018-06-28] MEDS: Allopurinol 300 MG Tablet PO SCH (08:50)
[2018-06-28] MEDS: Sod Chloride 0.9% Inj 1,000 ML IV.CONT SCH (08:55)
[2018-06-28 10:23] VITALS: RESP 18
[2018-06-28 12:15] VITALS: BP 162/84; TEMP 97.3; O2SAT 97
--- NOTE | 2018-06-28 14:09 | P.DS ---
DS: Providers Date of admission: 06/27/18 07:27 Primary care physician: PROVIDER NON STAFF Consults: 06/27/18 11:29 Consult to Cardiology Routine Consulting Provider: Vikas Rodgers Does the patient have a [employer]orer [employer] who follows them?: No Preferred Electrolog Operator:: Rn Lab Physician Reason for Consultation: NSTEMI Notified:: Physician Spoke with:: Dr Rodgers Date Notified:: 06/27/18 Time Notified:: 12:21 Ordering Provider: JESÚS Brief History from admission: Mr. Villatoro is a 73-year-old male. He came into the emergency department overnight complaining that he was awoken in the middle the night at approximately 4 AM secondary to severe tightness and sharp pain in his chest. He has a past history of coronary artery disease and had an DE with angioplasty per 1994. He cannot recall any specific chest symptoms until last night. When seen his troponin is 0.19. He is having some mild chest pressure but says this is nothing like what was happening last night. His second troponin at 3 hours after the first had trended up to 0.75. Due to this finding he was transitioned to [facility] and heart catheterization would be a likely next step. No other complaints today. No shortness of breath. No diaphoresis. No nausea. No vomiting. He does have a past history of smoking but has not been smoking recently. DS: Summary Mr. Villatoro is a pleasant 73-year-old male who was admitted to the hospital on 06/27/2018 due to chest pain. His troponin was elevated 0.19 on admission and later around 7 and 8. Patient was evaluated by cardiology. He underwent cardiac catheterization with bare-metal stent placement to the mid second diagonal artery. Postprocedure, patient continued to do well. He remained asymptomatic, did not have any chest pain, shortness of breath. Cardiology evaluated patient on the day of discharge and cleared for discharge. Cardiology recommended patient to continue Prasugrel. We also added carvedilol, atorvastatin and aspirin. Day after discharge, pharmacy contacted us to inform that patient's insurance does not cover Prasugrel. I called the pharmacy at 9 AM on 06/29/2018 and electronically prescribed Plavix 75 mg daily with 11 refills. I advised the pharmacist that patient should start taking Plavix as soon as possible. Time Spent with Patient Total time spent providing and/or coordinating discharge services: Less than 30 minutes Quality: VTE Deep Vein Thrombosis/Pulmonary Embolism Present on Admission: No Exam Narrative Exam Narrative: GENERAL: Well-nourished, well-developed patient. SKIN: Warm and dry. HEAD: Normocephalic. EYES: No scleral icterus. No injection or drainage. NECK: Supple, trachea midline. No JVD or lymphadenopathy. CARDIOVASCULAR: Regular rate and rhythm without murmurs, gallops, or rubs. RESPIRATORY: Breath sounds equal bilaterally. No accessory muscle use. GASTROINTESTINAL: Abdomen soft, non-tender, nondistended. MUSCULOSKELETAL: No cyanosis, or edema. BACK: Nontender without obvious deformity. No CVA tenderness. Results Labs on day of discharge: Labs from last 24 hours 06/28/18 06/28/18 06/27/18 05:20 05:20 22:40 WBC 6.7 RBC 4.36 L Hgb 14.4 Hct 41.0 MCV 94.0 MCH 33.1 MCHC 35.2 RDW 13.1 Plt Count 169 MPV 7.8 Neut % (Auto) 67.2 Lymph % (Auto) 18.8 [place] % (Auto) 10.7 H Eos % (Auto) 2.4 Baso % (Auto) 0.9 Neut # (Auto) 4.5 Lymph # (Auto) 1.3 [place] # (Auto) 0.7 Eos # (Auto) 0.2 Baso # (Auto) 0.1 WBC Differential . Differential Comment Auto diff final APTT 29.7 D Sodium 139 Potassium 3.9 Chloride 106 Carbon Dioxide 27.5 Anion Gap 6 BUN 19 H Creatinine 1.23 Estimated GFR 58 L Random Glucose 112 H Calcium 8.0 L D Total Bilirubin 0.9 AST 43 H ALT 22 Alkaline Phosphatase 67 Total Creatine Kinase 185 Troponin I 8.29 H* Total Protein 6.0 L D Albumin 3.0 L D Triglycerides 249 H Cholesterol 141 LDL Cholesterol, Calc 58 HDL Cholesterol 33.1 L Cholesterol/HDL Ratio 4.25 06/27/18 22:40 WBC RBC Hgb Hct MCV MCH MCHC RDW Plt Count MPV Neut % (Auto) Lymph % (Auto) [place] % (Auto) Eos % (Auto) Baso % (Auto) Neut # (Auto) Lymph # (Auto) [place] # (Auto) Eos # (Auto) Baso # (Auto) WBC Differential Differential Comment APTT Sodium Potassium Chloride Carbon Dioxide Anion Gap BUN Creatinine Estimated GFR Random Glucose Calcium Total Bilirubin AST ALT Alkaline Phosphatase Total Creatine Kinase 176 Troponin I 6.68 H* Total Protein Albumin Triglycerides Cholesterol LDL Cholesterol, Calc HDL Cholesterol Cholesterol/HDL Ratio Impressions ITS Impressions Chest X-Ray 06/27/18 06:01 CONCLUSION: No acute disease Discharge Plan Discharge Disposition Patient Disposition: 01 Discharge Home Discharge Condition Condition: Good Discharge Order Discharge Orders: Discharge Order (Routine); Ordered 06/28/18 Ordered By: Ashley Whyte Discharge Details Anticipated Discharge Date: 06/28/18 Physicians Team Primary Care Provider: NON STAFF,PROVIDER Attending Provider: Ashley Whyte Other Providers: Vikas Rodgers Rxs /Orders / Referrals /Forms Prescriptions: New carvedilol [Coreg] 3.125 mg Tablet 3.125 mg PO BID Qty: 60 RF: 3 atorvastatin [Lipitor] 40 mg tablet 40 mg PO QPM Qty: 90 RF: 3 aspirin 81 mg tablet,chewable 81 mg PO DAILY Qty: 90 RF: 0 clopidogrel [Plavix] 75 mg tablet 75 mg PO DAILY Qty: 30 RF: 11 Continue losartan 25 mg Tablet 25 mg PO DAILY RF: 0 allopurinol 300 mg Tablet 300 mg PO DAILY RF: 0 Discontinued aspirin 325 mg Tablet 325 mg PO DAILY RF: 0 atorvastatin 10 mg Tablet 10 mg PO DAILY RF: 0 Referrals: Vikas Rodgers MD [Physician] - See Instructions (PLEASE CALL [phone] FOR AN APPOINTMENT - Within 2 weeks) NON STAFF,PROVIDER [Primary Care Provider] - See Instructions (PLEASE CALL [facility] AT [phone] TO MAKE A HOSPITAL FOLLOW UP FOR 1 WEEK.) Discharge Instructions Patient Printed Instructions: Aspirin (By mouth), Atorvastatin (By mouth), Carvedilol (By mouth), Prasugrel (By mouth), Chest Pain (ED) Status ED Status: Left Department Discharge Information Discharge Date/Time: 06/28/18 15:05
[2018-06-28 14:22] VITALS: PULSE 65
--- NOTE | 2018-06-28 15:27 | ECG ---
Date Performed: 06/27/2018 Time Performed: 12:04:17 PTAGE: 73 years EKG: Sinus rhythm INFERIOR MYOCARDIAL INFARCTION ABNORMAL ECG Since PREVIOUS TRACING , no significant change noted PREVIOUS TRACIN06/27/2018 09.42 DOCTOR: Darron Baez Interpretating Date/Time 06/28/2018 15:25:47
--- NOTE | 2018-06-28 18:44 | P.PNCA ---
Subjective Interval history: assymptomatic in nad Medications and Allergies Allergies Allergy/AdvReac Type Severity Reaction Status Date / Time Penicillins Allergy Hives Verified 06/27/18 06:00 Sulfa (Sulfonamide Allergy Hives Verified 06/27/18 06:00 Antibiotics) Home Medications Medication Instructions Recorded Confirmed Type allopurinol 300 mg PO DAILY 06/27/18 06/27/18 History losartan 25 mg PO DAILY 06/27/18 06/27/18 History Physical Exam Vital signs: Vital Signs 06/27/18 19:00 06/27/18 20:00 06/27/18 21:00 Temperature 98.1 F Pulse Rate 78 79 75 Respiratory Rate 17 Blood Pressure 147/81 H Pulse Oximetry 96 06/27/18 22:00 06/27/18 23:00 06/28/18 00:00 Temperature 98 F Pulse Rate 72 66 69 Respiratory Rate 18 Blood Pressure 128/82 Pulse Oximetry 98 06/28/18 01:00 06/28/18 02:00 06/28/18 03:00 Temperature Pulse Rate 72 63 65 Respiratory Rate Blood Pressure Pulse Oximetry 06/28/18 03:34 06/28/18 04:00 06/28/18 05:00 Temperature 97.9 F Pulse Rate 66 59 L 82 Respiratory Rate 17 Blood Pressure 143/93 H Pulse Oximetry 98 06/28/18 06:00 06/28/18 07:00 06/28/18 08:00 Temperature 97.8 F Pulse Rate 81 70 62 Respiratory Rate 18 Blood Pressure 146/84 H Pulse Oximetry 98 06/28/18 09:00 06/28/18 10:00 06/28/18 11:00 Temperature Pulse Rate 60 63 60 Respiratory Rate Blood Pressure Pulse Oximetry 06/28/18 12:00 06/28/18 13:00 06/28/18 14:00 Temperature 97.3 F L Pulse Rate 64 62 65 Respiratory Rate 18 Blood Pressure 162/84 H Pulse Oximetry 97 Intake & Output 06/27/18 06/28/18 06/28/18 18:59 06:59 18:59 Intake Total 830 / 830 780 / 780 1125 / 1125 Output Total 780 / 780 Balance 830 / 830 0 / 0 1125 / 1125 Weight 93 kg 96.2 kg Intake: IV 510 / 510 540 / 540 1125 / 1125 Aggrastat Inj 12,500 mcg In 250 0 / 0 ml @ 0 mls/hr .ROUTE .STK-MED ONE Rx#:[id number] Heparin/D5W 25,000 U/250 mL 25, 10 / 10 40 / 40 000 unit In 250 ml @ Per Protocol IV.CONT TITRATE PRN Rx #:[id number] NS Inj 1,000 ML @ 80 mls/hr IV. 500 / 500 1000 / 1000 CONT .[id number] JOSEPHINE Rx#: [id number] Oral 320 / 320 240 / 240 Output: Urine 780 / 780 Other: # Voids 1 Date of Last Bowel Movement 06/27/18 06/27/18 06/28/18 Weight On Admission 93 kg - Constitutional no acute distress - Routine HEENT Exam Head: Present: normocephalic - Routine Neck Exam Present: supple - Routine Respiratory Exam Present: CTA bilaterally - Routine Cardiovascular Exam Present: S1, S2 - Routine Abdominal Exam Present: soft - Routine Extremities Exam Comments: no aide Results 06/28/18 05:20 06/28/18 05:20 Cardiac Enzymes 06/27/18 06/27/18 06/27/18 Range/Units 06:00 09:30 12:15 AST 26 (15-37) U/L Troponin I 0.19 H 0.75 H* 1.67 H* (0.02-0.05) ng/mL 06/27/18 06/28/18 Range/Units 22:40 05:20 AST 43 H (15-37) U/L Troponin I 6.68 H* 8.29 H* (0.02-0.05) ng/mL Coagulation 06/27/18 06/27/18 06/27/18 Range/Units 06:00 12:15 22:40 PT 10.3 (9.8-11.6) sec APTT 27.6 72.7 H D 29.7 D (23.4-31.7) sec Lipids 06/28/18 Range/Units 05:20 Triglycerides 249 H (42-150) mg/dL Cholesterol 141 (120-200) mg/dL HDL Cholesterol 33.1 L (40.0-60.0) mg/dL Cholesterol/HDL Ratio 4.25 Ratio CBC 06/27/18 06/28/18 Range/Units 06:00 05:20 WBC 6.8 6.7 (4.0-11.0) th/mm3 RBC 5.24 4.36 L (4.50-5.90) mil/mm3 Hgb 16.3 14.4 (13.0-17.0) gm/dL Hct 49.6 41.0 (39.0-51.0) % Plt Count 185 169 (150-450) th/mm3 Neut # (Auto) 3.5 4.5 (1.8-7.7) th/mm3 Lymph # (Auto) 2.2 1.3 (1.0-4.8) th/mm3 [place] # (Auto) 0.8 0.7 (0.0-0.9) th/mm3 Eos # (Auto) 0.3 0.2 (0.0-0.4) th/mm3 Baso # (Auto) 0.0 0.1 (0.0-0.2) th/mm3 Comprehensive Metabolic Panel 06/27/18 06/28/18 Range/Units 06:00 05:20 Sodium 133 L 139 (136-145) meq/L Potassium 3.6 3.9 (3.5-5.1) meq/L Chloride 101 106 (98-107) meq/L Carbon Dioxide 25.2 27.5 (21.0-32.0) meq/L BUN 27 H 19 H (7-18) mg/dL Creatinine 1.30 1.23 (0.60-1.30) mg/dL Calcium 9.2 8.0 L D (8.5-10.1) mg/dL AST 26 43 H (15-37) U/L ALT 26 22 (12-78) U/L Alkaline Phosphatase 75 67 (45-117) U/L Total Protein 7.0 6.0 L D (6.4-8.2) g/dL Albumin 3.8 3.0 L D (3.4-5.0) g/dL Intake and Output 06/28/18 06/28/18 06/28/18 06:59 14:59 22:59 Intake Total 280 / 280 1125 / 1125 Output Total 780 / 780 Balance -500 / -500 1125 / 1125 Intake: IV 40 / 40 1125 / 1125 Aggrastat Inj 12,500 mcg In 250 0 / 0 ml @ 0 mls/hr .ROUTE .STK-MED ONE Rx#:[id number] Heparin/D5W 25,000 U/250 mL 25, 40 / 40 000 unit In 250 ml @ Per Protocol IV.CONT TITRATE PRN Rx #:[id number] NS Inj 1,000 ML @ 80 mls/hr IV. 1000 / 1000 CONT .[id number] JOSEPHINE Rx#: [id number] Oral 240 / 240 Output: Urine 780 / 780 Other: Date of Last Bowel Movement 06/28/18 Weight 96.2 kg - Imaging and Cardiology Imaging: Impressions Chest X-Ray 06/27/18 06:01 CONCLUSION: No acute disease Assessment and Plan - Assessment (1) NSTEMI (non-ST elevated myocardial infarction) Code(s): I21.4 - Non-ST elevation (NSTEMI) myocardial infarction Status: Acute (2) CAD (coronary artery disease) Code(s): I25.10 - Atherosclerotic heart disease of [place] coronary artery without angina pectoris Status: Acute (3) ACS (acute coronary syndrome) Code(s): I24.9 - Acute ischemic heart disease, unspecified Status: Acute - Plan 1.) CAD - pod # 1 bms x 2 diagonal coronary artery, assymptomatic, ok to dc on aspirin, effient, coreg, lipitor, lisinopril, f/u with me gato. i explained to the patienbt that noncompliance with dapt would result in a life threatening stent thrombosis, he understands
== END 2018-06-28 15:05 | disposition home or self-care (01) | DRG 249 ==
LOC: PHED 05:53 → PHEDA 07:27 → PH3 08:25 → HCIS 14:37
PROVIDERS: ADMIT Hospitalist; ATTEND Hospitalist
CPT/HCPCS: 71010; 71045; 80053; 80061; 82550; 83735; 84484; 85002; 85025; 85610; 85730; 92928; 93005; 93458; 99152; 99153; 99291; C1725; C1769; C1876; C1887; C1893; J1644; J2250; J3010; J3246; J7030; Q9967